=== PATIENT | male | born 1960 | race Caucasian/White ===

== ENCOUNTER 2022-03-02 16:33 | Emergency (ER) | payer OTHER ==
[~2022-03-02 16:33] MED LIST: PERCOCET 5-3251 EACH PO
== END 2022-03-02 18:53 | disposition home or self-care (01) ==
LOC: FER 16:33
DX: S63.502A Unspecified sprain of left wrist, initial encounter (principal); W22.8XXA Striking against or struck by other objects, initial encounter; Y92.89 Other specified places as the place of occurrence of the external cause; Y99.0 Civilian activity done for income or pay
CPT/HCPCS: 73110